=== PATIENT | female | born 1940 | race Two or more races ===

== ENCOUNTER → 2021-09-24 06:19 | Outpatient (CLI) | payer OTHER ==
[~2021-09-24 06:19] MED LIST: ASA81 MG; HYDROCHLOROTHIA25 GM; MEDROLPACK PO; TOPROL XL50 M1; VALACYCLOVIR1000 MG PO
== END | disposition home or self-care (01) ==
LOC: LAB 06:19
PROVIDERS: ATTEND Internal Medicine Gastroenterology
DX: R10.84 Generalized abdominal pain (principal)

== ENCOUNTER 2021-09-24 07:07 | Outpatient (CLI) | payer OTHER | END 2021-09-24 07:30 | disposition home or self-care (01) | LOC: TOM 07:07 | PROVIDERS: ATTEND Internal Medicine Gastroenterology | DX: R10.84 Generalized abdominal pain (principal) | CPT/HCPCS: 74177; Q9965 ==